=== PATIENT | female | born 1975 | race Caucasian/White ===

== ENCOUNTER 2018-03-08 17:05 | Emergency (ER) | payer MEDICAID ==
[~2018-03-08] VITALS: Ht 162.6 cm; Wt 88.2 kg
[2018-03-08 17:07] VITALS: BP 170/89
[2018-03-08] MEDS ORDERED: BUTA1CAP28 PO (17:47)
[2018-03-08] MEDS ORDERED: SIMV20TA3 PO (17:47)
[2018-03-08] MEDS ORDERED: CYCL-259 PO (17:47)
[2018-03-08] MEDS ORDERED: ESCI20TA PO (17:47)
[2018-03-08] MEDS ORDERED: QUET50TA PO (17:47)
[2018-03-08] MEDS ORDERED: LISI-170 PO (17:47)
[2018-03-08] MEDS ORDERED: NAPR-685 PO (17:47)
[2018-03-08] MEDS ORDERED: METH750T87 PO (17:47)
[2018-03-08] MEDS ORDERED: TOPI50TA8 PO (17:47)
== END 2018-03-08 19:58 | disposition home or self-care (01) ==
LOC: ED 18:12
DX: I82.B22 Chronic embolism and thrombosis of left subclavian vein (principal)
CPT/HCPCS: 82962; 99284

== ENCOUNTER → 2018-05-05 | Outpatient (CLI) | payer MEDICAID ==
[~2018-05-05] MED LIST: BUTA1CAP28 PO; CYCL-259 PO; ESCI20TA PO; LISI-170 PO; METH750T87 PO; NAPR-685 PO; QUET50TA PO; SIMV20TA3 PO; TOPI50TA8 PO
== END | disposition home or self-care (01) ==
LOC: CARD 10:20
PROVIDERS: ATTEND Surgery
DX: G56.01 Carpal tunnel syndrome, right upper limb (principal)
CPT/HCPCS: 95886; 95908